=== PATIENT | male | born 1990 | race Caucasian/White ===

== ENCOUNTER 2020-07-23 23:55 | Emergency (ER) | payer BC ==
[~2020-07-23] VITALS: Ht 170.2 cm; Wt 61.2 kg
[2020-07-24] MEDS ORDERED: TDAP [DIPH/PERTUSSIS/TET] 0.5 ML VIAL IM ONE ×2 (00:18→00:30)
[2020-07-24 00:54] VITALS: BP 128/69
== END 2020-07-24 00:54 | disposition home or self-care (01) ==
LOC: ER 23:58
DX: S61.210A Laceration without foreign body of right index finger without damage to nail, initial encounter (principal); W26.0XXA Contact with knife, initial encounter; Y93.89 Activity, other specified; Y92.89 Other specified places as the place of occurrence of the external cause; Y99.8 Other external cause status
CPT/HCPCS: 12001; 90471; 90715; 99283; A4217; A6403